=== PATIENT | male | born 1950 | race Caucasian/White ===

== ENCOUNTER → 2017-07-13 | Outpatient (CLI) | payer OTHER, BC ==
[~2017-07-13] MED LIST: "\\\"CHOLESTEROL MED\\\"" PO; ANAPROX DS550 M1 PO; LEVOTHROID112 MCG PO; [UNRECOGNIZED DRUG - REMARK] PO
== END | disposition home or self-care (01) ==
DX: Z01.818 Encounter for other preprocedural examination (principal); R13.13 Dysphagia, pharyngeal phase; R13.11 Dysphagia, oral phase
CPT/HCPCS: 92611 GN; G8996 GN; G8997 GN; G8998 GN